=== PATIENT | male | born 1960 | race Caucasian/White ===

== ENCOUNTER 2022-06-11 08:26 | Observation (INO) ==
--- NOTE | 2022-06-05 09:12 | History and Physical Report ---
CHIEF COMPLAINT: Left hip pain discomfort and stiffness. HISTORY OF PRESENT ILLNESS: The patient is a 62-year-old gentleman from [place] who presents [facility] for surgical treatment of his left hip. He is referred by patient of mine who I have done alona haddad in the past. He has about 5+ year history of increasing left hip pain and discomfort. He says this all started after he felt like he strained his groin after running a 10K. He has gradually catrina en worse over time. He is having trouble even going on long walks anymore. He describes groin pain, thigh pain radiating down to his knee. No numbness. He has difficulty putting his shoes and socks on. The medicine helps a very minimally. He would like to have his hip fixed. PAST MEDICAL HISTORY: Noncontributory. PAST SURGICAL HISTORY: None. ALLERGIES: None. CURRENT MEDICATIONS: None. SOCIAL HISTORY: A 62-year-old male patient from [place]. He is retired. drink per week. Fo ur children. Does not smoke. FAMILY HISTORY: Noncontributory. REVIEW OF SYSTEMS: Negative for diabetes, neurologic problem, vascular problems or bleeding disorder s. No chest pain or shortness of breath. No history of DVT or PE. PHYSICAL EXAMINATION: GENERAL: Shows a pleasant middle-aged male. Looks to be in excellent health. HEENT: Benign. NECK: Supple. No lymphadenopathy. LUNGS: Clear to auscultation. HEART: Has regular rate and rhythm. ABDOMEN: Soft, nontender, nondistended. EXTREMITIES: Grossly neurovascularly intact except as follows. Examination of the left hip revealed the patient walks with a slightly antalgic gait. Leg lengths ap pear pretty equal. He does have quite a bit of stiffness with any type of hip motion. Internally ro grossman to neutral at best. Negative straight leg raise. No knee effusion. He is neurologically intac t. X-RAYS: X-rays of left hip were reviewed. It shows advanced hip arthritis. He has got near complet e loss of his joint space. He has got osteophytes around the femoral head and acetabulum. He has go t moderate right hip arthritis. ASSESSMENT: A 62-year-old gentleman with advanced left hip arthritis. He has gradually progressed o oksana the past 5 years. He has failed conservative measures and would like to have his hip replaced. PLAN: We will take him to the operating room and do left total hip replacement. The risks and benef its of this procedure were explained to the patient and include but not limited to DVT, PE, , in fection, neurological injury, vascular injury, bleeding problem, pain, limited range of motion, stiff ness, failure to relieve the symptoms, incomplete relief of symptoms, need for further surgery in the future, etc. The patient understands and desires to proceed. Informed consent was obtained. As far as DVT prophylaxis, we will plan on, TEDs, SCDs, and aspirin twice a day. The plan will be di scharged to home with some home health. Job ID: [id number]
--- NOTE | 2022-06-07 13:10 | Anesthesiology Consultation ---
Date of Service June 07, 2022 Assessment & Plan (1) Encounter for pre-operative examination: - COVID screening: Per assessment on 06/07: No known COVID-19 positive contacts or current COVID-19 related symptoms. Travel screen negative. Patient vaccinated. At surgeon discretion if preop Covid testing being done. - Outpatient joint assessment: Pt currently scheduled for inpatient pathway. If surgeon requests review for outpatient joint pathway, patient is an acceptable candidate for outpatient joint program from anesthesia standpoint pending surgeon's office assessment that patient is motivated, has good support and completes [facility] Day [facility] Program preop requirements. Chart Review Chart Review: Acceptable Risk for Surgery and Patient NOT seen in Pre Admission Testing History Surgery Operation Date: 06/11/22 08:50 Proposed Procedures p Left Total Hip Arthroplasty - Jared Barajas MD Height/Weight Height: 6 ft 3 in Weight: 94.801 kg Allergies Allergy/AdvReac Type Severity Reaction Status Date / Time No Known Allergies Allergy Verified 06/07/22 12:18 Medications Home Medications Medication Instructions Recorded Confirmed Last Taken coenzyme Q10 100 mg capsule (Co 100 mg PO QAM 06/07/22 06/07/22 Unknown Q-10) garlic 400 mg tablet,delayed 400 mg PO HS 06/07/22 06/07/22 Unknown release ginkgo biloba 1 tab PO QAM 06/07/22 06/07/22 Unknown multivitamin 1 tab PO QAM 06/07/22 06/07/22 Unknown omega-3 fatty acids 1 cap PO BID 06/07/22 06/07/22 Unknown turmeric 1 tab PO HS 06/07/22 06/07/22 Unknown Past Medical History Medical History Arthritis of left hip Past Surgical History Surgical History Hx of colonoscopy Hx of tonsillectomy Social History Smoking Status: Never smoker Do You Dip or Chew Tobacco: No Hx Alcohol Use: Yes Alcohol type: beer alcohol intake frequency: other Alcohol Intake Frequency Comment: 4-6 beers per week Hx Substance Use: No substance use type: does not use Lab Results Anesthesia Preop Results Results Anesthesia Widget: WBC 5.09 K/ul (4.8-10.8) 04/23/22 Hgb 15.9 g/dl (14.0-18.0) 04/23/22 Hct 47.4 % (42.0-52.0) 04/23/22 Plt 226 K/uL (130-400) 04/23/22 Na 140 mmol/L (136-145) 04/23/22 K 4.4 mmol/L (3.5-5.1) 04/23/22 Cl 103 mmol/L (98-107) 04/23/22 CO2 30 mmol/L (21-32) 04/23/22 BUN 19 mg/dl (6-23) 04/23/22 Creat 1.19 mg/dl (0.6-1.4) 04/23/22 Glucose Level 104 mg/dl (70-99(Fasting)) H 04/23/22 PT 11.0 Seconds (9.0-12.0) 04/23/22 PTT 27.8 Seconds (21.0-31.0) 04/23/22 INR 1.0 (0.9-1.1) 04/23/22 Blood Type O Positive 04/23/22 Antibody Screen NEGATIVE 04/23/22 Testing Electrocardiogram Date: 04/23/22 Findings: + NSR @ (60) Chest X-Ray Date: 04/23/22 Findings: + NAD
[~2022-06-11 08:26] MED LIST: ACETAMINOPHEN 500 MG TAB PO SCH; BUPIVACAINE 0.5 % 5 MG/1 ML PF 10ML VIAL ONE; CeleBREX 200 MG CAP PO SCH; FAMOTIDINE 20 MG TAB PO SCH; LR 500ML BOLUS, THEN 15ML/HR IV SCH; LR 60ML/HR IV SCH; METOCLOPRAMIDE HCL 10 MG TABLET PO SCH; Scopolamine 1 MG TDSY TD SCH; TRANEXAMIC ACID 1,000 MG **IV Pre-op IV SCH; ceFAZolin 2000MG 2,000 MG/15 ML SYR IV SCH
--- NOTE | 2022-06-11 08:49 | History & Physical Bridge Note ---
Date of Service June 11, 2022 History & Physical Bridge Note I have examined the patient, reviewed the History & Physical and in the interval since the performance of the History & Physical I have noted the following changes of clinical significance: no changes noted
[2022-06-11] MEDS ORDERED: MIDAZOLAM HCL 1 MG/ML 2ML VIAL ONE ×2 (09:48→10:13)
[2022-06-11] MEDS ORDERED: ONDANSETRON INJ 2 MG/ML 2 ML VIAL ONE (09:49)
[2022-06-11] MEDS ORDERED: PROPOFOL IV EMULSION 10 MG/ML 20 ML VIAL IV ONE (09:49)
[2022-06-11] MEDS ORDERED: fentaNYL citrate PF 100 MCG/2 ML VIAL ONE (09:49)
[2022-06-11] MEDS ORDERED: LIDOCAINE 2% 20 MG/ML 5 ML SYR IV ONE (09:49)
[2022-06-11] MEDS ORDERED: BUPIVACAINE/EPINEPHRINE 0.5% MPF 1:200,000 30 ML VIAL ONE (11:01)
[2022-06-11] MEDS ORDERED: MoRPHine SULFATE PF 1 MG/ML 10 ML AMP/VIAL ONE (11:07)
[2022-06-11] MEDS ORDERED: NALOXONE HCL 0.4 MG/1 ML VIAL/CARP IV PRN ×2 (11:28→13:55)
[2022-06-11] MEDS ORDERED: HYDROmorphone INJ 0.5 MG/0.5 ML SYR IV PRN (11:28)
[2022-06-11] MEDS ORDERED: NALOXONE HCL 0.08 MG in SYRINGE 1.8 ML IV PRN (11:28)
[2022-06-11] MEDS ORDERED: diphenhydrAMINE 50 MG/ML VIAL IV PRN (11:28)
[2022-06-11] MEDS ORDERED: MEPERIDINE HCL 25 MG/ML CARP/VIAL IV PRN (11:28)
[2022-06-11] MEDS ORDERED: MoRPHine SULFATE 2 MG/ML CARP IV PRN (11:28)
[2022-06-11] MEDS ORDERED: PROMETHAZINE HCL 12.5 MG in SODIUM CHLORIDE 0.9% 50 ML IV PRN (11:28)
[2022-06-11] MEDS ORDERED: NALOXONE HCL 1 MG in SODIUM CHLORIDE 0.9% 1000ML 1,000 ML IV PRN (11:28)
[2022-06-11] MEDS ORDERED: ePHEDrine sulfate 50 MG/ML AMP IV PRN (11:28)
[2022-06-11] MEDS ORDERED: MoRPHine SULFATE PF 1 MG/ML 10 ML AMP/VIAL INT SPINAL ONE (11:28)
[2022-06-11] MEDS ORDERED: KETOROLAC 30 MG/ML VIAL IV PRN (11:28)
[2022-06-11] MEDS ORDERED: NALBUPHINE HCL INJ 10 MG/ML AMP IV PRN (11:28)
[2022-06-11] MEDS ORDERED: LACTATED RINGER'S 500 ML IV PRN (11:28)
[2022-06-11] MEDS ORDERED: ONDANSETRON INJ 2 MG/ML 2 ML VIAL IV PRN (11:28)
[2022-06-11] MEDS ORDERED: DC INTRASPINAL MORPHINE SCH (11:30)
[2022-06-11] MEDS ORDERED: NO NARCOTICS OR SEDATIVES SCH (11:30)
[2022-06-11] MEDS ORDERED: SODIUM CHLORIDE 0.9% 1000ML 1,000 ML IV SCH ×2 (11:30→13:55)
[2022-06-11] MEDS ORDERED: ePHEDrine sulfate 50 MG/ML AMP ONE (11:49)
[2022-06-11] MEDS ORDERED: PHENYLEPHRINE HCL 10 MG/ML VIAL ONE (12:02)
--- NOTE | 2022-06-11 13:09 | Operative Report ---
PG Post Operative Report Pre & Post Diagnosis Operation Date: 06/11/22 10:40 Pre-Op Diagnosis: Left hip degenerative joint disease Post-Op Diagnosis: Left hip degenerative joint disease I identified the patient and participated in the time-out.: Yes Procedure Operation Date: 06/11/22 10:40 Actual Procedures p Left Total Hip Arthroplasty(Left) - Jared Barajas MD Surgeon Jared Barajas MD Java Integration Developer Sanjay Gill PA-C Estimated Blood Loss 200 Findings Consistent with Post-Op Diagnosis Operative findings were advanced left hip arthritis. Extensive grade 4 [id number] disease of the femoral head and acetabulum. Fairly large medial acetabular osteophyte as well as anterior acetabular osteophyte. Moderate-sized joint effusion. Specimens Left femoral head sent for pathology Anesthesia Type Spinal MAC Complications none Disposition Accompanied Patient To Recovery: No Indications Patient is a 62-year-old very active gentleman is had a several year history of increasing left hip pain discomfort. His symptoms progressed despite conservative care and started affecting his quality of life and ability maintain an active lifestyle. X-rays show advanced left hip arthritis. He elected proceed with total hip arthroplasty. Description of Procedure Operative implants consist of: 1 Biomet G7 size 60 mm acetabular shell. 2. [place] hole limiter. 3. 6.5 cancellous acetabular screws 135 mm length 1 to 20 mm length. 4. Highly cross-linked polyethylene liner with a 60 mm outer diameter and 36 mm inner diameter. 5. DePuy Corail size 13 KLA femoral stem. 6. +8.5/36 mm ceramic articular ball. The patient was taken the operating, identified, placed on the operating table supine position but all contact areas were appropriately padded. IV antibiotics tried by anesthesia team. A spinal anesthetic had been implemented holding area. Hagen catheter was placed in sterile fashion. The patient then placed in the right lateral decubitus position. An axillary roll was placed. Stulberg hip positioner was used for positioning. Left hip and leg were then prepped and draped in usual sterile fashion. A posterolateral approach to the left hip was then performed through a curvilinear incision centered over the greater trochanter. Sharp dissection was carried through subcutaneous tissue to the IT band and gluteal fascia the IT band gluteal fascia incised longitudinally in line with skin incision. The underlying greater bursa was excised. The piriformis and external rotators were tagged and taken off the posterior aspect hip joint capsule. Great care was taken throughout the procedure protect the sciatic nerve at all times. A posterior capsulotomy was then performed leaving a large flap for later repair. Hip was internally rotated and dislocated. A femoral neck osteotomy cut was made with a Final Cut about 15 mm above the lesser trochanter. Femoral head was removed and sent for pathology the femur was retracted anteriorly and attention was then drawn the acetabulum. The acetabular labrum was excised. The pulmonary fat was excised. Sequential reaming the acetabular was then performed beginning with a size 47 and progressing up to 59. I then reamed a little bit with a 60 reamer and placed a 60 mm cup in about 40 degrees lateral opening and 20 degrees of anteversion. It was fixed with two 6.5 cancellous acetabular screws. A large anterior acetabular osteophyte was removed. Trial liner was placed. Attention drawn the femur. The proximal femur was entered with cookie-cutter followed by canal finder. Then broached beginning with size 8 and progressing up to a 12. Did not quite get the fit I like to [address] a 13 but we ended up leaving it a little proud due to the tight proximal fit. We then trialed the hip. The +5 articular ball provided excellent stability but the soft tissue tension was just really lax. Therefore elected to place a +8.5 articular ball. The hip was fully stable full extension and external rotation along with flexion and internal rotation to about [address]. We elect to place these implants. Nupathe all trial implants were removed. An apex hole luminary was placed. Highly cross- linked polyethylene liner was placed. A size 13 KLA femoral stem was impacted in position. We left this just a little bit proud. A +8.5/36 mm ceramic articular ball was placed. Hip was located once again found to be stable. Attention drawn to closing. The wounds irrigated cosigns pulsatile lavage solution. I did inject locally with 60 cc of half percent Marcaine with epinephrine. The posterior capsule and external rotators were then repaired through drill holes in the posterior trochanter with #2 Tycron suture. The IT band gluteal fascia then closed with #1 PDS suture in a running fashion for subcutaneous tissue then closed with 2 layers of deep layer #1 Vicryl suture in the subcutaneous tissue with 2 Dexon suture in a buried interrupted fashion the skin was closed skin qing. Leg was then cleaned and dried and sterile dressing was Xeroform, 4 x 4's, sterile ABD pad and foam tape was applied. Patient then transferred to the recovery room in stable condition. Patient tolerated procedure well and there are no complications. Sanjay Gill, my physician assistant store leader, was present for the entire procedure. His assistance was essential and required for appropriate patient positioning, prepping and draping, surgical exposure, performing the technical details of the operation, placement the implants, closure of the wound, and placement of the sterile bandage. I attest to the content of the Intraoperative Record and any orders documented therein. Any exceptions are noted below.
--- NOTE | 2022-06-11 13:31 | Anesthesiology Progress Note ---
Date of Service June 11, 2022 Anesthesia Post Procedure Vital Signs Vital Signs: Temp Pulse Pulse Resp BP Pulse Ox O2 Del Method 06/11/22 13:25 36.5 C 71 16 119/68 98 Room Air 06/11/22 13:15 86 16 117/69 99 Room Air 06/11/22 13:05 80 13 124/70 100 Oxymask 06/11/22 12:55 36.5 C 92 H 15 116/59 L 100 Oxymask 06/11/22 09:00 36.4 C L 67 20 126/79 99 Room Air O2 Flow Rate 06/11/22 13:25 06/11/22 13:15 06/11/22 13:05 4 06/11/22 12:55 9 06/11/22 09:00 Transfer of Care Handoff Completed per policy Notes Mental Status: alert / awake / arousable and participated in evaluation Nausea / Vomiting: adequately controlled Pain: adequately controlled Airway Patency, RR, SpO2: stable & adequate BP & HR: stable & adequate Hydration State: stable & adequate Neuraxial Anesthesia: was administered and sensory block is resolving Anesthetic Complications: no major complications apparent and Pt Satisfied with anesthetic care
--- NOTE | 2022-06-11 13:46 | XRay Report ---
AP PELVIS, CROSSTABLE LATERAL LEFT HIP History: Left total hip arthroplasty. Degenerative arthritis. Postop. FINDINGS: The patient is status post a left total hip arthroplasty. The hardware is intact. No fractu re or dislocation. Skin qing are in place. IMPRESSION: Left total hip arthroplasty. No evidence for hardware complication. ACT 112: Negative or not required by law. Electronically signed by: Mikie Boggs M.D. 06/11/2022 1:45 PM
[2022-06-11] MEDS ORDERED: KETOROLAC 30 MG/ML VIAL IV SCH (13:55)
[2022-06-11] MEDS ORDERED: ALUMINUM/MAGNESIUM SUSP 30 ML UDC PO PRN (13:55)
[2022-06-11] MEDS ORDERED: bisacodyL 10 MG SUPP PR PRN (13:55)
[2022-06-11] MEDS ORDERED: MAGNESIUM HYDROXIDE SUSP 30 ML UDC PO PRN (13:55)
[2022-06-11] MEDS ORDERED: dexAMETHasone 10 MG in SYRINGE 0 ML IV SCH (14:00)
[2022-06-11] MEDS: ACETAMINOPHEN 500 MG TAB PO SCH ×2 (14:22→21:22)
[2022-06-11] MEDS: Scopolamine CHECK PATCH PLACEMENT SCH ×2 (15:09→23:47)
[2022-06-11] MEDS: ASCORBIC ACID 500 MG TAB PO SCH (17:01)
[2022-06-11] MEDS: ceFAZolin 2000MG 2,000 MG/15 ML SYR IV SCH (18:13)
[2022-06-11] MEDS ORDERED: TRANEXAMIC ACID / 0.7% NACL 1,000 MG/100 ML BAG IV SCH (19:00)
[2022-06-11] MEDS ORDERED: GARLIC 400 MG PO SCH (21:00)
[2022-06-11] MEDS ORDERED: SENNA 8.6 MG TAB PO SCH (21:00)
[2022-06-11] MEDS ORDERED: NON-FORMULARY MEDICATION (Turmeric 1 TAB) PO SCH (21:00)
[2022-06-11] MEDS ORDERED: NON-FORMULARY MEDICATION (Omega-3 Fatty Acids Capsule) PO SCH (21:00)
[2022-06-11] MEDS: ASPIRIN 81 MG ECTAB PO SCH (21:21)
[2022-06-11] MEDS: DOCUSATE SODIUM 100 MG CAP PO SCH (21:21)
[2022-06-12] MEDS: ceFAZolin 2000MG 2,000 MG/15 ML SYR IV SCH (02:59)
[2022-06-12] MEDS ORDERED: diphenhydrAMINE Capsule 25 MG CAP PO PRN (05:28)
[2022-06-12] MEDS ORDERED: METOCLOPRAMIDE HCL INJ 5 MG/ML 2 ML VIAL IV PRN (05:28)
[2022-06-12] MEDS ORDERED: ONDANSETRON INJ 2 MG/ML 2 ML VIAL IV PRN (05:28)
[2022-06-12] MEDS ORDERED: traMADol HCL 50 MG TABLET PO PRN (05:28)
[2022-06-12] MEDS ORDERED: HYDROmorphone INJ 0.5 MG/0.5 ML SYR IV PRN (05:28)
[2022-06-12] MEDS: ACETAMINOPHEN 500 MG TAB PO SCH (05:46)
[2022-06-12 06:29] LABS: Basophils # (auto) 0.01 K/uL (0-0.2); Basophils % (auto) 0.1 %; Hemoglobin 12.3 g/dl (14.0-18.0); Immature Granulocytes # (auto) 0.03 K/uL (0.01-0.20); Immature Granulocytes % (auto) 0.3 %; Lymphocytes # (auto) 0.45 K/uL (1.2-3.4); Lymphocytes % (auto) 4.4 %; Mean Corpuscular Hemoglobin 31.4 pg (25.0-34.0); Mean Corpuscular Hgb Conc 34.2 g/dL (32.0-36.0); Mean Corpuscular Volume 91.8 fL (80.0-100.0); Mean Platelet Volume 10.3 fL (9.4-12.4); Monocytes # (auto) 0.62 K/uL (0.11-0.59); Neutrophils # (auto) 9.17 K/uL (1.40-6.50); Neutrophils % (auto) 89.2 %; Platelet Count 185 K/uL (130-400); RDW Coefficient of Variation 12.3 % (11.5-14.5); RDW Standard Deviation 41.1 fL (36.4-46.3); Red Blood Count 3.92 M/uL (4.70-6.10); White Blood Count 10.28 K/ul (4.8-10.8)
[2022-06-12 06:36] LABS: BUN Creatinine Ratio 15.8 (10-20); Calcium 8.5 mg/dl (8.5-10.1); Creatinine Clr Calc Pharmacy 81.3 ml/min; Potassium 4.4 mmol/L (3.5-5.1)
[2022-06-12] MEDS ORDERED: KETOROLAC 30 MG/ML VIAL IV SCH (08:00)
[2022-06-12] MEDS: ASPIRIN 81 MG ECTAB PO SCH (08:43)
[2022-06-12] MEDS: ASCORBIC ACID 500 MG TAB PO SCH (08:44)
[2022-06-12] MEDS: DOCUSATE SODIUM 100 MG CAP PO SCH (08:44)
[2022-06-12] MEDS: Scopolamine CHECK PATCH PLACEMENT SCH (08:45)
--- NOTE | 2022-06-12 08:52 | Progress Notes ---
DATE OF SERVICE: 06/12/2022. SUBJECTIVE: A 62-year-old gentleman, postoperative day 1 from left hip replacement. He is doing wel l. Pain is controlled. Had a good night. No chest pain or shortness of breath. Not feeling dizzy or lightheaded. Hoping to go home today. OBJECTIVE: VITAL SIGNS: Temperature 36.8. Vital signs stable. GENERAL: Shows a pleasant middle-aged male. He is lying in bed and looks pretty comfortable. LUNGS: Clear to auscultation. HEART: Regular rate and rhythm. ABDOMEN: Soft, nontender, nondistended. EXTREMITIES: Grossly neurovascularly intact except as follows: Examination of the left leg reveals the dressing to be clean, dry and intact. Leg lengths were equal. Hip is located. He is neurologic ally intact. He can dorsiflex and plantarflex his foot appropriately. LABORATORY DATA: Hemoglobin 12.3. Hematocrit 36.0. Electrolytes are stable. ASSESSMENT: A 62-year-old gentleman, postoperative day 1 from left hip replacement, doing well. Jeffrey n is controlled. Hip is located. He is neurologically intact. PLAN: 1. DVT prophylaxis includes thigh-high TEDs, SCDs, and aspirin twice a day. 2. PT/OT, weightbear as tolerated. Left total hip protocol. 3. Pain control, doing well with current pain regimen. 4. Disposition: Plan to discharge to home with some home health later today. Job ID: [id number]
[2022-06-12] MEDS ORDERED: GINKGO BILOBA PO SCH (09:00)
[2022-06-12] MEDS ORDERED: TAMSULOSIN HCL 0.4 MG CAP PO SCH (09:00)
[2022-06-12] MEDS ORDERED: NON-FORMULARY MEDICATION (Coenzyme Q10 [Co Q-10] 100 mg Capsule) PO SCH (09:00)
[2022-06-12] MEDS ORDERED: DOCUSATE SODIUM/SENNA 50/8.6MG TAB PO SCH (09:00)
[2022-06-12] MEDS ORDERED: NON-FORMULARY MEDICATION (Multivitamin Tablet) PO SCH (09:00)
[2022-06-12] MEDS ORDERED: MULTIVITAMIN TAB PO SCH (09:00)
== END 2022-06-12 12:04 | disposition home health service (06) ==
LOC: ASU 08:26 → 3E 08:26
DX: M16.12 Unilateral primary osteoarthritis, left hip